=== PATIENT | male | born 1960 | race Caucasian/White ===

== ENCOUNTER → 2017-07-03 | Outpatient (CLI) | payer OTHER | END | disposition home or self-care (01) | LOC: KCIC 14:07 | DX: J40 Bronchitis, not specified as acute or chronic (principal); Z87.891 Personal history of nicotine dependence; R11.10 Vomiting, unspecified; R50.9 Fever, unspecified; R53.83 Other fatigue | CPT/HCPCS: 71046 ==

== ENCOUNTER → 2017-11-12 | Outpatient (CLI) | payer OTHER | END | disposition home or self-care (01) | LOC: KCIC US 15:08 | DX: N43.2 Other hydrocele (principal) | CPT/HCPCS: 76870 ==